=== PATIENT | male | born 2000 | race Caucasian/White ===

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

== ENCOUNTER 2022-07-07 17:39 | Emergency (ER) | payer OTHER, SELFPAY ==
[2022-07-07] MEDS ORDERED: Ibuprofen 800 MG TAB ONE (19:36)
== END 2022-07-07 20:27 | disposition home or self-care (01) ==
LOC: ERS 17:39
DX: J02.9 Acute pharyngitis, unspecified (principal); F17.290 Nicotine dependence, other tobacco product, uncomplicated
CPT/HCPCS: 87081; 87430; 99283